=== PATIENT | female | born 1990 | race Two or more races ===

== ENCOUNTER 2019-06-08 21:39 | Emergency (ER) | payer MEDICAID ==
[~2019-06-08] VITALS: Ht 167.6 cm; Wt 155.6 kg
[~2019-06-08 21:39] MED LIST: ATEN-60; TOPI25TA32
[2019-06-08 22:00] VITALS: BP 137/80
== END 2019-06-09 00:29 | disposition home or self-care (01) ==
LOC: ER 21:41
DX: B35.9 Dermatophytosis, unspecified (principal); J45.909 Unspecified asthma, uncomplicated; E11.9 Type 2 diabetes mellitus without complications; I10 Essential (primary) hypertension; Z88.0 Allergy status to penicillin; Z88.8 Allergy status to other drugs, medicaments and biological substances

== ENCOUNTER 2019-09-04 01:16 | Emergency (ER) | payer MEDICAID ==
[~2019-09-04] VITALS: Ht 167.6 cm; Wt 155.1 kg
[2019-09-04 03:35] LABS: Urine Bacteria FEW /hpf (None Seen); Urine Blood Negative /uL (Negative); Urine Specific Gravity 1.008 (1.001-1.035); Urine WBC 4 /hpf (0 - 5)
[2019-09-04] MEDS ORDERED: LORazepam 0.5 MG TAB PO ONE (04:30)
[2019-09-04] MEDS ORDERED: MECLIZINE HCL 25 MG TAB PO ONE (06:45)
[2019-09-04 07:27] VITALS: BP 117/67
== END 2019-09-04 08:13 | disposition home or self-care (01) ==
LOC: ER 01:20
DX: R42 Dizziness and giddiness (principal); F41.9 Anxiety disorder, unspecified; F32.9 Major depressive disorder, single episode, unspecified; I10 Essential (primary) hypertension; F43.10 Post-traumatic stress disorder, unspecified; E66.01 Morbid (severe) obesity due to excess calories; Z68.43 Body mass index [BMI] 50.0-59.9, adult; Z79.899 Other long term (current) drug therapy; Z88.0 Allergy status to penicillin; Z88.1 Allergy status to other antibiotic agents; Z88.8 Allergy status to other drugs, medicaments and biological substances
CPT/HCPCS: 81001

== ENCOUNTER 2022-10-16 04:46 | Emergency (ER) | payer MEDICAID ==
[~2022-10-16] VITALS: Ht 167.6 cm; Wt 175.0 kg
[~2022-10-16 04:46] MED LIST changes: -TOPI25TA32; +TOPI25TA43
[2022-10-16 06:35] VITALS: BP 155/84
== END 2022-10-16 07:55 | disposition home or self-care (01) ==
LOC: ER 04:46
DX: B00.1 Herpesviral vesicular dermatitis (principal); J45.909 Unspecified asthma, uncomplicated; I10 Essential (primary) hypertension; Z88.1 Allergy status to other antibiotic agents; Z88.8 Allergy status to other drugs, medicaments and biological substances